=== PATIENT | male | born 1950 | race Hispanic/Latino ===

== ENCOUNTER 2022-04-22 00:07 | Inpatient (IN) | payer OTHER ==
[2022-04-22 02:09] LABS: Absolute Lymphocytes (CBC) 1.9 K/uL (0.7-4.9); Hematocrit 37.2 % (39.6-49.0); Lymphocytes % 20.5 % (15.3-44.8); MCV 80.6 fL (80-100); MPV 7.9 fL (7.6-11.3); RBC Red Blood Cell Count 4.61 M/uL (4.33-5.43)
[2022-04-22 02:21] LABS: BUN Blood Urea Nitrogen 26 mg/dL (7-18); Bicarbonate 27 mmol/L (21-32); Glomerular Filtration Rate 75 ml/min (=/>90); Glucose Level 101 mg/dL (74-106); Potassium 3.4 mmol/L (3.5-5.1); Sodium Level 138 mmol/L (136-145); Troponin High Sensitivity 3.7 pg/mL (<58.9)
[2022-04-22] MEDS ORDERED: NA CHLORIDE 0.9% 1,000 ML ONE ×2 (03:38→09:31)
--- NOTE | 2022-04-22 05:28 | ER ---
Nurse's Notes [facility] Name: Rohan Degroot Jr Age: 71 yrs Sex: Male : 1950 Arrival Date: 04/22/2022 Time: 00:12 Bed 24 Private MD: Diagnosis: Diabetic Foot Infection, Cellulitis Presentation: 04/22 00:37 Chief complaint: Patient states: Pain and swelling in toes on left foot x1 day. Pt is kb3 diabetic and had toes on right foot amputated in 08/2021 due to diabetic wounds. Coronavirus screen: Vaccine status: Patient reports receiving the 2nd dose of the covid vaccine. Client denies travel out of the [place] in the last 14 days. At this time, the client does not indicate any symptoms associated with coronavirus-19. Ebola Screen: Patient negative for fever greater than or equal to 101.5 degrees Fahrenheit, and additional compatible Ebola Virus Disease symptoms Patient denies exposure to infectious person. Patient denies travel to an Ebola-affected area in the 21 days before illness onset. No symptoms or risks identified at this time. Initial Sepsis Screen: Does the patient meet any 2 criteria? No. Patient's initial sepsis screen is negative. Does the patient have a suspected source of infection? Yes: Skin breakdown/wound. Risk Assessment: Do you want to hurt yourself or someone else? Patient reports no desire to harm self or others. Onset of symptoms was April 21, 2022. 00:37 Method Of Arrival: Ambulatory kb3 00:37 Acuity: NIKUNJ 3 kb3 Triage Assessment: 00:40 General: Appears in no apparent distress. comfortable, Behavior is calm, cooperative. kb3 Pain: Complains of pain in left foot Pain does not radiate. Pain currently is 8 out of 10 on a pain scale. Quality of pain is described as burning, Pain began 1 day ago. Is continuous. Musculoskeletal: Reports pain in left foot. Historical: - Allergies: 00:40 No Known Allergies; kb3 - PMHx: 00:40 Diabetes mellitus; Hypertensive disorder; Heart disease; Hypercholesterolemia; kb3 Depressive disorder; Congestive heart failure; - Immunization history:: Adult Immunizations up to date, Client reports receiving the 2nd dose of the Covid vaccine, Last tetanus immunization: up to date. - Social history:: Smoking status: Patient reports the use of cigarette tobacco products, smokes one-half pack cigarettes per day, Patient/guardian denies using alcohol, street drugs. Screenin:31 Abuse screen: Denies threats or abuse. Denies injuries from another. Nutritional kd3 screening: No deficits noted. Tuberculosis screening: No symptoms or risk factors identified. Fall Risk None identified. Assessment: 03:31 General: Appears in no apparent distress. Behavior is calm, cooperative. Neuro: Level kd3 of Consciousness is awake, alert, obeys commands, Oriented to person, place, time, situation. Respiratory: Airway is patent Trachea midline Respiratory effort is even, unlabored, Respiratory pattern is regular, symmetrical. 04:02 Reassessment: Patient is alert, oriented x 3, equal unlabored respirations, skin bb warm/dry/pink. pt awaiting diagnostic results, IV site intact, patent with fluids infusing family at bedside. Vital Signs: 00:37 Pulse 76; Resp 20; Temp 98.0; Pulse Ox 97% ; Weight 97.52 kg; Height 5 ft. 6 in. kb3 (167.64 cm); Pain 8/10; 03:31 BP 145 / 84; kd3 04:03 BP 140 / 76; Pulse 72; Resp 18 S; Pulse Ox 99% on R/A; bb 00:37 Body Mass Index 34.70 (97.52 kg, 167.64 cm) kb3 ED Course: 00:12 Patient arrived in ED. ja2 00:40 Triage completed. kb3 00:40 Arm band placed on Patient placed in an exam room. kb3 01:02 Desiree Serrano, RN is Primary Nurse. kd3 01:14 Ron Holliday MD is Attending Physician. mh7 01:25 Inserted saline lock: 20 gauge in right forearm, using aseptic technique. Blood kb3 collected. 01:48 Blood Culture Adult (2) Sent. kb3 01:48 Lactate Sent. kb3 01:48 Basic Metabolic Panel Sent. kb3 01:48 CBC with Diff Sent. kb3 01:48 Troponin HS Sent. kb3 01:57 Foot Left 3 View XRAY In Process Unspecified. EDMS 03:31 No provider procedures requiring assistance completed. kd3 05:27 Ruddy Santos MD is Hospitalizing Provider. mh7 05:37 COVID swab sent to lab. wm 17:40 Patient admitted, IV remains in place. ld1 Administered Medications: 03:34 Drug: NS 0.9% 1000 ml Route: IV; Rate: 1000 ml; Site: right forearm; as6 04:30 Follow up: IV Status: Completed infusion; IV Intake: 1000ml bb 06:04 Drug: Zosyn (piperacillin-tazobactam) 3.375 grams Route: IVPB; Infused Over: 60 mins; bb Site: right antecubital; 06:50 Drug: DiFLUcan (fluconazole) 150 mg Route: PO; as6 10:37 Drug: vancoMYCIN 1 grams Route: IVPB; Infused Over: 2 hrs; Site: right antecubital; kr3 Medication: 03:31 VIS not applicable for this client. kd3 Intake: 04:30 IV: 1000ml; Total: 1000ml. bb Outcome: 05:28 Decision to Hospitalize by Provider. [facility] 17:39 Admitted to Med/surg accompanied by tech, via wheelchair, room 215, with chart, Report ld1 called to URSULA Moon 17:39 Condition: stable 17:39 Instructed on the need for admit. 17:40 Patient left the ED. ld1 Signatures: Dispatcher [employer] EDMS Carol Birmingham RN RN bb Ron Holliday MD MD 7 Sobia Banks RN RN ld1 Mery Trinidad Giselle Cardona Ashby RN RN as6 Desiree Serrano RN RN kd3 Marina Wild RN RN [email or web address] Umu Askew, RN RN kb3
--- NOTE | 2022-04-22 05:29 | EDPHYS ---
Physician Documentation [facility] Name: Rohan Degroot Jr Age: 71 yrs Sex: Male : 1950 Arrival Date: 04/22/2022 Time: 00:12 Bed 24 Private MD: GAMALIEL Physician Ron Holliday HPI: 04/22 01:45 This 71 yrs old Male presents to ER via Ambulatory with complaints of Foot mh7 Pain. 01:45 The patient presents with pain, that is acute, tenderness. The complaints affect the mh7 left foot. The complaints affect the toes of left foot. Context: The problem was sustained at an unknown location, resulted from an unknown cause, Mechanism of Injury: Unknown the patient can fully bear weight, the patient is able to ambulate, without difficulty. Onset: The symptoms/episode began/occurred 2 day(s) ago. Modifying factors: The symptoms are alleviated by nothing, the symptoms are aggravated by nothing. Associated signs and symptoms: Pertinent negatives: calf tenderness, fever, nausea, numbness, rash, tingling, vomiting, warmth, weakness. Severity of symptoms: At their worst the symptoms were moderate, 2 day(s) ago, in the emergency department the symptoms are unchanged. Historical: - Allergies: 00:40 No Known Allergies; kb3 - PMHx: 00:40 Diabetes mellitus; Hypertensive disorder; Heart disease; Hypercholesterolemia; kb3 Depressive disorder; Congestive heart failure; - Immunization history:: Adult Immunizations up to date, Client reports receiving the 2nd dose of the Covid vaccine, Last tetanus immunization: up to date. - Social history:: Smoking status: Patient reports the use of cigarette tobacco products, smokes one-half pack cigarettes per day, Patient/guardian denies using alcohol, street drugs. ROS: 01:45 Constitutional: Negative for fever, chills, and weight loss, Eyes: Negative for injury, mh7 pain, redness, and discharge, ENT: Negative for injury, pain, and discharge, Neck: Negative for injury, pain, and swelling, Cardiovascular: Negative for chest pain, palpitations, and edema, Respiratory: Negative for shortness of breath, cough, wheezing, and pleuritic chest pain, Abdomen/GI: Negative for abdominal pain, nausea, vomiting, diarrhea, and constipation, Back: Negative for injury and pain, : Negative for injury, bleeding, discharge, and swelling, Neuro: Negative for headache, weakness, numbness, tingling, and seizure, Psych: Negative for depression, anxiety, suicide ideation, homicidal ideation, and hallucinations, Allergy/Immunology: Negative for hives, rash, and allergies, Endocrine: Negative for neck swelling, polydipsia, polyuria, polyphagia, and marked weight changes, Hematologic/Lymphatic: Negative for swollen nodes, abnormal bleeding, and unusual bruising. Exam: 01:45 Constitutional: This is a well developed, well nourished patient who is awake, alert, mh7 and in no acute distress. Head/Face: Normocephalic, atraumatic. Eyes: Pupils equal round and reactive to light, extra-ocular motions intact. Lids and lashes normal. Conjunctiva and sclera are non-icteric and not injected. Cornea within normal limits. Periorbital areas with no swelling, redness, or edema. Neck: Trachea midline, no thyromegaly or masses palpated, and no cervical lymphadenopathy. Supple, full range of motion without nuchal rigidity, or vertebral point tenderness. No Meningismus. Chest/axilla: Normal chest wall appearance and motion. Nontender with no deformity. No lesions are appreciated. Cardiovascular: Regular rate and rhythm with a normal S1 and S2. No gallops, murmurs, or rubs. Normal PMI, no JVD. No pulse deficits. Respiratory: Lungs have equal breath sounds bilaterally, clear to auscultation and percussion. No rales, rhonchi or wheezes noted. No increased work of breathing, no retractions or nasal flaring. Abdomen/GI: Soft, non-tender, with normal bowel sounds. No distension or tympany. No guarding or rebound. No evidence of tenderness throughout. Back: No spinal tenderness. No costovertebral tenderness. Full range of motion. Neuro: Awake and alert, GCS 15, oriented to person, place, time, and situation. Cranial nerves II-XII grossly intact. Motor strength 5/5 in all extremities. Sensory grossly intact. Cerebellar exam normal. Normal gait. Psych: Awake, alert, with orientation to person, place and time. Behavior, mood, and affect are within normal limits. 01:45 Skin: Warm, dry with normal turgor. Normal color with no rashes, no lesions, and no evidence of cellulitis. 01:45 Musculoskeletal/extremity: Extremities: noted in the distal dorsal left foot and toes: erythema, swelling, excoriation between digits, small ulcerations, ROM: intact in all extremities, Circulation is intact in all extremities. Sensation intact. Compartment Syndrome exam of affected extremity: is normal. no pain, no numbness, no tingling, no sensation deficit, no palor, no weak pulses, Joints: All joints appear normal with full range of motion. Weight bearing: able to fully bear weight, Tendon exam: specific tendon testing normal through active and passive range of motion DVT Exam: no pain, no swelling, no tenderness, negative Homans' sign noted on exam, no appreciated bluish discoloration, no erythema, no increased warmth, Calves: are non-tender, have equal circumference. Vital Signs: 00:37 Pulse 76; Resp 20; Temp 98.0; Pulse Ox 97% ; Weight 97.52 kg; Height 5 ft. 6 in. kb3 (167.64 cm); Pain 8/10; 03:31 BP 145 / 84; kd3 04:03 BP 140 / 76; Pulse 72; Resp 18 S; Pulse Ox 99% on R/A; bb 00:37 Body Mass Index 34.70 (97.52 kg, 167.64 cm) kb3 MDM: 05:26 Differential diagnosis: fracture, sprain, foreign body, arthritis, cellulitis. Data [facility] reviewed: vital signs, nurses notes, lab test result(s), CBC, electrolytes, urinalysis, radiologic studies, plain films. Data interpreted: Pulse oximetry: on room air is 99 %. Interpretation: normal. Counseling: I had a detailed discussion with the patient and/or guardian regarding: the historical points, exam findings, and any diagnostic results supporting the discharge/admit diagnosis, the presence of at least one elevated blood pressure reading (>120/80) during this emergency department visit, lab results, radiology results, the need for further work-up and treatment in the hospital. Response to treatment: the patient's symptoms have mildly improved after treatment. 05:28 Patient medically screened. [facility] 04/22 01:04 Order name: Basic Metabolic Panel; Complete Time: 06:42 kd3 04/22 01:04 Order name: CBC with Diff; Complete Time: 02:18 kd3 04/22 01:04 Order name: Troponin HS; Complete Time: 06:42 kd3 04/22 01:04 Order name: Lactate; Complete Time: 03:24 kd3 04/22 01:04 Order name: Blood Culture Adult (2) kd3 04/22 02:06 Order name: Glucose, Ancillary Testing; Complete Time: 02:18 EDMS 04/22 05:11 Order name: Lactate Sepsis 2 HR Follow-up; Complete Time: 05:17 EDMS 04/22 05:19 Order name: LFT's [facility] 04/22 05:36 Order name: SARS RAPID [facility] 04/22 05:37 Order name: CBC with Automated Diff EDMS 04/22 05:37 Order name: CBC with Automated Diff EDMS 04/22 05:37 Order name: Comprehensive Metabolic Panel EDND 04/22 05:37 Order name: Comprehensive Metabolic Panel [facility] [place] 04/22 06:08 Order name: SARS-COV-2 Antigen Rapid; Complete Time: 06:42 EDMS 04/22 01:04 Order name: EKG; Complete Time: 01:06 kd3 04/22 01:04 Order name: Cardiac monitoring; Complete Time: 01:40 kd3 04/22 01:04 Order name: EKG - Nurse/Tech; Complete Time: 02:04 kd3 04/22 01:04 Order name: IV Saline Lock; Complete Time: 01:25 kd3 04/22 01:04 Order name: Labs collected and sent; Complete Time: 01:25 kd3 04/22 01:12 Order name: Foot Left 3 View XRAY snw 04/22 05:37 Order name: 60g Consistent Carbohydrate (ADA 1800/2000) EDND 04/22 06:33 Order name: Liver (Hepatic) Function; Complete Time: 06:42 EDMS 04/22 09:18 Order name: Glucose, Ancillary Testing EDND 04/22 12:47 Order name: Glucose, Ancillary Testing EDND 04/22 14:48 Order name: US EDND 04/22 15:28 Order name: MRI EDND 04/22 01:04 Order name: O2 Per Protocol; Complete Time: 01:25 kd3 04/22 01:04 Order name: O2 Sat Monitoring; Complete Time: 01:25 kd3 Administered Medications: 03:34 Drug: NS 0.9% 1000 ml Route: IV; Rate: 1000 ml; Site: right forearm; as6 04:30 Follow up: IV Status: Completed infusion; IV Intake: 1000ml bb 06:04 Drug: Zosyn (piperacillin-tazobactam) 3.375 grams Route: IVPB; Infused Over: 60 mins; bb Site: right antecubital; 06:50 Drug: DiFLUcan (fluconazole) 150 mg Route: PO; as6 10:37 Drug: vancoMYCIN 1 grams Route: IVPB; Infused Over: 2 hrs; Site: right antecubital; kr3 Disposition Summary: 04/22/22 05:28 Hospitalization Ordered Hospitalization Status: Inpatient Admission [facility] Provider: Ruddy Santos [facility] Condition: Stable [facility] Problem: new [facility] Symptoms: have improved [facility] Bed/Room Type: Standard [facility] Location: Telemetry/MedSurg (Inpatient)(04/22/22 16:42) bd Room Assignment: [facility](04/22/22 16:42) bd Diagnosis - Diabetic Foot Infection, Cellulitis [facility] Forms: - Medication Reconciliation Form [facility] - SBAR form [facility] Signatures: Dispatcher [employer] EDMS Sahara Brandon Martha RN RN mw Carol Birmingham RN Ron Zapata MD MD 7 Evan Huston RN RN as6 Desiree Serrano RN RN kd3 Marina Wild RN RN kr3 Umu Askew, RN RN kb3 Corrections: (The following items were deleted from the chart) 05:31 05:28 Telemetry/MedSurg (Inpatient) [facility] 05:31 05:28 [facility] 05:39 01:45 Musculoskeletal/extremity: Extremities: noted in the toes of left foot: [facility] excoriation between digits, ROM: intact in all extremities, Circulation is intact in all extremities. Sensation intact. Compartment Syndrome exam of affected extremity: is normal. no pain, no numbness, no tingling, no sensation deficit, no palor, no weak pulses, Joints: All joints appear normal with full range of motion. Weight bearing: able to fully bear weight, Tendon exam: specific tendon testing normal through active and passive range of motion DVT Exam: no pain, no swelling, no tenderness, negative Homans' sign noted on exam, no appreciated bluish discoloration, no erythema, no increased warmth, Calves: are non-tender, have equal circumference, mh7 16:42 05:31 [facility] ER HOLD mw bd 16:42 05:31 ERHOLD- mw bd
[2022-04-22] MEDS ORDERED: ALBUTEROL 2.5 MG/3 ML NEB SOL NEB PRN (05:32)
[2022-04-22] MEDS ORDERED: ONDANSETRON 4 MG/2 ML VIAL IV PRN (05:32)
[2022-04-22] MEDS ORDERED: MORPHINE 2 MG/ML SYR IV PRN (05:32)
[2022-04-22] MEDS ORDERED: NA CHLORIDE 0.9% 100 ML ONE (05:55)
[2022-04-22] MEDS ORDERED: NA CHLORIDE 0.9% 250 ML ONE (05:55)
[2022-04-22] MEDS ORDERED: VANCOMYCIN 1 GM/VIAL ONE (05:55)
[2022-04-22] MEDS ORDERED: PIPERACIL/TAZO 3.375 GM VIAL IV ONE (05:56)
[2022-04-22] MEDS ORDERED: NA CHLORIDE 0.9% 1,000 ML IV SCH (06:00)
[2022-04-22 06:07] LABS: SARS-CoV-2 Antigen Rapid Res Negative (Negative)
[2022-04-22 06:23] LABS: ALT/SGPT 53 U/L (12-78); AST/SGOT 27 U/L (15-37); Albumin 3.5 g/dL (3.4-5.0); Alkaline Phosphatase 111 U/L (45-117); Bilirubin Total 0.2 mg/dL (0.2-1.0); Protein, Total 7.2 g/dL (6.4-8.2)
[2022-04-22 06:32] LABS: Bilirubin Direct < 0.1 mg/dL (0-0.2)
[2022-04-22] MEDS ORDERED: FLUCONAZOLE 100 MG TAB ONE (06:56)
[2022-04-22] MEDS: INSULIN -REGULAR HUMAN 50 UNIT/0.5 ML ML SQ SCH ×4 (07:30→21:00)
[2022-04-22] MEDS ORDERED: IPRATROPIUM BROM 0.5MG/2.5ML NEB SCH (08:00)
[2022-04-22] MEDS ORDERED: IPRATROPIUM BROM 0.5MG/2.5ML ONE (09:17)
[2022-04-22] MEDS: NA CHLORIDE 0.9% 1,000 ML IV SCH (13:03)
--- NOTE | 2022-04-22 13:10 | P.HP ---
Certification for Inpatient Patient admitted to: Inpatient With expected LOS: >2 Midnights Practitioner: I am a practitioner with admitting privileges, knowledge of patient current condition, hospital course, and medical plan of care. Services: Services provided to patient in accordance with Admission requirements found in Title 42 Section 412.3 of the Code of Federal Regulations Patient History Date of Service: 04/22/22 Reason for admission: FOOT INFECTION History of Present Illness: NICOLE IS A DIABETIC WITH CAD, PAD AND R FOREFOOT AMPUTATION COMES WITH L SIDE FOOT INFECTION OVERNIGHT. IT HAS TURNED RED AND HAS PAIN. NO FEVER. Allergies No Known Allergies Allergy (Unverified 04/22/22 05:56) Home medications list reviewed: Yes - Past Medical/Surgical History -: DM -: PAD WITH DM R FOREFOOT AMPUTATION. -: CAD WITH DM STENTS. Review of Systems 10-point ROS is otherwise unremarkable Physical Examination - Vital Signs Blood Pressure: 120/68 Pulse: 81 Respirations: 16 Pulse Ox (%): 94 - Physical Exam General: Mild distress HEENT: Atraumatic, PERRLA, Mucous membr. moist/pink, EOMI, Sclerae nonicteric Neck: Supple, 2+ carotid pulse no bruit, No LAD, Without JVD or thyroid abnormality Respiratory: Clear to auscultation bilaterally, Normal air movement Cardiovascular: Regular rate/rhythm, Normal S1 S2 Gastrointestinal: Normal bowel sounds, No tenderness Musculoskeletal: No tenderness Integumentary: Other (DIABETIC FOOT INFECTION. CELLULITIS. PAD LSIDE NO DP PULSE. ) Neurological: Normal gait, Normal speech, Normal strength at 5/5 x4 extr, Normal tone, Normal affect Lymphatics: No axilla or inguinal lymphadenopathy - Studies Laboratory Data (last 24 hrs) 04/22/22 05:19: Total Bilirubin Cancelled, AST Cancelled, ALT Cancelled, Alkaline Phosphatase Cancelled 04/22/22 01:14: WBC 9.0, Hgb 12.5 L, Hct 37.2 L, Plt Count 199 04/22/22 01:14: Sodium 138, Potassium 3.4 L, BUN 26 H, Creatinine 1.05, Glucose 101, Total Bilirubin 0.2, AST 27, ALT 53, Alkaline Phosphatase 111 Assessment and Plan - Problems (Diagnosis) (1) Cellulitis of left foot Current Visit: Yes Status: Acute Plan: ZOSYN IV MAY NOT NEED VANCOMYCIN. MRI FOOT. (2) Diabetic peripheral angiopathy Current Visit: Yes Status: Chronic Plan: HISTORY OF PAD. CHECK L SIDE. WILL GET VASCUALR SURGEON IF NEED. (3) Coronary artery disease due to type 2 diabetes mellitus Current Visit: Yes Status: Acute - Advance Directives Does patient have a Living Will: No Does patient have a Durable POA for Healthcare: No
--- NOTE | 2022-04-22 14:24 | RAD REPORT ---
EXAM DESCRIPTION: XR Left Foot Complete, 3 Views CLINICAL HISTORY: PAIN TECHNIQUE: Frontal, lateral and oblique views of the left foot. COMPARISON: No relevant prior studies available. FINDINGS: Bones/joints: No acute or remote fracture deformity. No osseous destruction or erosion. Multilevel degenerative changes most pronounced at the mid foot articulations. No dislocation. Soft tissues: Unremarkable. No radiopaque foreign body. Vasculature: Atherosclerotic disease. IMPRESSION: No acute abnormality. Electronically signed by: Odalys Gaitan MD 04/22/2022 2:20 AM CDT Due to temporary technical issues with the PACS/Fluency reporting system, reports are being signed by the in house radiologists without review as a courtesy to insure prompt reporting. The interpreting radiologist is fully responsible for the content of the report.
--- NOTE | 2022-04-22 14:47 | RAD REPORT ---
EXAM DESCRIPTION: US - Lower Extremity Arterial Bilat - 04/22/2022 2:35 pm CLINICAL HISTORY: Leg pain/peripheral vascular disease/ COMPARISON: None FINDINGS: The right common femoral, superficial femoral and right popliteal arteries demonstrate biphasic wave forms Left common femoral and left superficial femoral arterial waveform is biphasic. Left popliteal arteri al waveform biphasic The posterior tibial and dorsalis pedis arteries demonstrate monophasic waveforms bilaterally. Grayscale, color and spectral analysis performed on all vessels IMPRESSION: Mild disease involving proximal and mid arteries lower extremity bilaterally Moderate disease involving distal lower extremity arteries bilaterally
--- NOTE | 2022-04-22 15:28 | RAD REPORT ---
EXAM DESCRIPTION: MRI - Foot Left Wo Cont - 04/22/2022 3:13 pm CLINICAL HISTORY: M79.672, M72.2 COMPARISON: April 22, 2022 x-ray TECHNIQUE: Axial, sagittal and coronal magnetic resonance imaging left foot FINDINGS: Images are somewhat suboptimal Edema is present within dorsal subcutaneous tissues. No fracture or dislocation is seen. No significant abnormal signal within the bones to suggest osteomyelitis. IMPRESSION: No evidence of osteomyelitis
[2022-04-22] MEDS: PIPER TAZO 3.375 GM in NA CHLORIDE 0.9% 100 ML IV SCH (18:18)
[2022-04-22] MEDS: ENOXAPARIN 30 MG/0.3 ML SQ SCH (18:18)
[2022-04-23] MEDS: PIPER TAZO 3.375 GM in NA CHLORIDE 0.9% 100 ML IV SCH ×3 (00:07→16:39)
[2022-04-23 03:46] LABS: Absolute Lymphocytes (CBC) 1.3 K/uL (0.7-4.9); Hematocrit 35.9 % (39.6-49.0); Lymphocytes % 15.5 % (15.3-44.8); MCV 79.2 fL (80-100); MPV 7.5 fL (7.6-11.3); RBC Red Blood Cell Count 4.54 M/uL (4.33-5.43)
[2022-04-23 04:14] LABS: Albumin 3.3 g/dL (3.4-5.0); Bilirubin Total 0.5 mg/dL (0.2-1.0); Potassium 3.7 mmol/L (3.5-5.1); Protein, Total 6.9 g/dL (6.4-8.2)
[2022-04-23] MEDS: INSULIN -REGULAR HUMAN 50 UNIT/0.5 ML ML SQ SCH ×4 (07:30→21:27)
--- NOTE | 2022-04-23 08:17 | EKG ---
Test Date: 2022-04-22 Test Time: 01:54:50 Side [place]: EZIO MEASUREMENT RESULTS: Intervals: Rate: 69 IA: 232 QRSD: 94 QT: 420 QTc: 450 [place]: P: 34 IA: 232 QRS: -28 T: 39 INTERPRETIVE STATEMENTS: Sinus rhythm with 1st degree AV block Otherwise normal ECG No previous ECG available for comparison Electronically Signed On 04-23-22 08:11:33 CDT by Joey Calderón
[2022-04-23] MEDS ORDERED: PIPERACIL/TAZO 3.375 GM VIAL IV ONE (08:30)
[2022-04-23] MEDS: TRAMADOL HCL 50 MG TAB PO PRN ×2 (14:19→19:43)
[2022-04-23] MEDS: ENOXAPARIN 30 MG/0.3 ML SQ SCH (16:51)
--- NOTE | 2022-04-23 21:20 | P.PN ---
Subjective Date of Service: 04/23/22 Chief Complaint: FOOT INFECTION Subjective: Improving FOOT IS DRYING UP. INFECTION SHOWS IMPROVEMENT. HE HAS SHOOTING PAIN FROM FOOT TO THIGH. TRAMADOL IS NOT WORKING Physical Examination - Vital Signs Temperature: 98.1 F Blood Pressure: 142/70 Pulse: 74 Respirations: 16 Pulse Ox (%): 95 - Physical Exam General: Oriented x3, Mild distress HEENT: Atraumatic, PERRLA, EOMI Neck: Supple, JVD not distended Respiratory: Clear to auscultation bilaterally, Normal air movement Cardiovascular: Regular rate/rhythm, Normal S1 S2 Gastrointestinal: Normal bowel sounds, No tenderness Musculoskeletal: No tenderness Integumentary: No rashes, Erythema (FOREFOOT, NAIL GOOD BLOOD RETURN. MILD DP AND PT PULSE. ) Neurological: Normal speech, Normal tone, Normal affect Lymphatics: No axilla or inguinal lymphadenopathy - Studies Medications List Reviewed: Yes Assessment And Plan - Current Problems (Diagnosis) (1) Cellulitis of left foot Current Visit: Yes Status: Acute Plan: ZOSYN IV MAY NOT NEED VANCOMYCIN. MRI FOOT. CONT ANBX. (2) Diabetic peripheral angiopathy Current Visit: Yes Status: Chronic Plan: HISTORY OF PAD. CHECK L SIDE. WILL GET VASCUALR SURGEON IF NEED. (3) Coronary artery disease due to type 2 diabetes mellitus Current Visit: Yes Status: Acute (4) Diabetic peripheral neuropathy Current Visit: Yes Status: Chronic Plan: GABAPENTIN TRIAL MAY NEED TO RAISE DOSE. SMALL DOSE TO START WITH.
[2022-04-23] MEDS: GABAPENTIN 100 MG CAP PO SCH (21:26)
[2022-04-24] MEDS: PIPER TAZO 3.375 GM in NA CHLORIDE 0.9% 100 ML IV SCH ×3 (00:53→18:04)
[2022-04-24] MEDS: NA CHLORIDE 0.9% 1,000 ML IV SCH (00:54)
[2022-04-24] MEDS: INSULIN -REGULAR HUMAN 50 UNIT/0.5 ML ML SQ SCH ×4 (07:30→21:00)
[2022-04-24] MEDS: HOME MED 1 EA UNK (Semaglutide [Ozempic] 1 MG/0.75 ML Pen.Injctr) SQ SCH (07:45)
[2022-04-24] MEDS ORDERED: VANCOMYCIN 1 GM in NA CHLORIDE 0.9% 250 ML IVPB SCH (09:00)
[2022-04-24] MEDS ORDERED: HUMALOG MIX 75/25 100 UNITS/ML SQ SCH ×2 (09:00→18:00)
[2022-04-24] MEDS: GABAPENTIN 100 MG CAP PO SCH ×3 (10:02→21:40)
[2022-04-24] MEDS: VANCOMYCIN 1.75 GM in NA CHLORIDE 0.9% 500 ML IVPB SCH (10:02)
[2022-04-24] MEDS: ASPIRIN 81 MG CHEWABLE TABLET PO SCH (10:03)
[2022-04-24] MEDS: LOSARTAN POTASSIUM 50 MG TABLET PO SCH (10:03)
[2022-04-24] MEDS: BUPROPION HCL XL 150 MG TAB PO SCH (10:03)
[2022-04-24] MEDS: SERTRALINE HCL 100 MG TAB PO SCH (10:03)
[2022-04-24] MEDS: ACETIC ACID 0.25% IRRIG IRR SCH (10:13)
[2022-04-24] MEDS: DUTASTERIDE 0.5 MG GEL CAP PO SCH (10:13)
[2022-04-24] MEDS: CLOPIDOGREL 75 MG TABLET PO SCH (10:14)
[2022-04-24] MEDS: ENOXAPARIN 40 MG/0.4 ML SQ SCH (17:00)
[2022-04-24] MEDS ORDERED: ENOXAPARIN 30 MG/0.3 ML SQ SCH (17:00)
--- NOTE | 2022-04-24 21:02 | P.PN ---
Subjective Date of Service: 04/24/22 Chief Complaint: FOOT INFECTION Subjective: Improving FOOT IS DRYING UP. INFECTION SHOWS IMPROVEMENT. HE HAS SHOOTING PAIN FROM FOOT TO THIGH. TRAMADOL IS NOT WORKING HE HAD NEUROPATHIC PAIN LASTNIGHT AND I GAVE HIM GABAPENTIN THAT WORKED WELL. Physical Examination - Vital Signs Temperature: 97.8 F Blood Pressure: 134/64 Pulse: 70 Respirations: 16 Pulse Ox (%): 95 - Physical Exam General: Mild distress, Obese HEENT: Atraumatic, PERRLA, EOMI Neck: Supple, JVD not distended Respiratory: Clear to auscultation bilaterally, Normal air movement Cardiovascular: Regular rate/rhythm, Normal S1 S2 Gastrointestinal: Normal bowel sounds, No tenderness Musculoskeletal: No tenderness Integumentary: No rashes, Erythema (THE PLANTER SURFACE OF FOREFOOT IS IMPROVING BUT THE PUS EXISTS BETWEEN TOES.) Neurological: Normal speech, Normal tone, Normal affect Lymphatics: No axilla or inguinal lymphadenopathy - Studies Medications List Reviewed: Yes Assessment And Plan - Current Problems (Diagnosis) (1) Cellulitis of left foot Current Visit: Yes Status: Acute Plan: ZOSYN IV MAY NOT NEED VANCOMYCIN. MRI FOOT. CONT ANBX. I ADEED VANCOMYCIN AND ALSO ASKED NURSE TO DO AEROBIC, ANEROBIC AND FUNGAL CULTURE OF THE PUS. STABLE FO FLAVIO. (2) Diabetic peripheral angiopathy Current Visit: Yes Status: Chronic Plan: HISTORY OF PAD. CHECK L SIDE. WILL GET VASCUALR SURGEON IF NEED. (3) Coronary artery disease due to type 2 diabetes mellitus Current Visit: Yes Status: Acute (4) Diabetic peripheral neuropathy Current Visit: Yes Status: Chronic Plan: GABAPENTIN TRIAL MAY NEED TO RAISE DOSE. SMALL DOSE TO START WITH.
[2022-04-24] MEDS: ATORVASTATIN 40 MG TAB PO SCH (21:40)
[2022-04-24] MEDS: TAMSULOSIN 0.4 MG SR CAP PO SCH (21:40)
[2022-04-25] MEDS: PIPER TAZO 3.375 GM in NA CHLORIDE 0.9% 100 ML IV SCH ×3 (00:39→17:56)
[2022-04-25] MEDS: VANCOMYCIN 1.75 GM in NA CHLORIDE 0.9% 500 ML IVPB SCH ×2 (03:43→21:21)
[2022-04-25] MEDS: INSULIN -REGULAR HUMAN 50 UNIT/0.5 ML ML SQ SCH ×4 (07:30→21:00)
[2022-04-25] MEDS: DUTASTERIDE 0.5 MG GEL CAP PO SCH (08:59)
[2022-04-25] MEDS: ASPIRIN 81 MG CHEWABLE TABLET PO SCH (09:00)
[2022-04-25] MEDS: HUMALOG MIX 75/25 100 UNITS/ML SQ SCH ×2 (09:00→17:57)
[2022-04-25] MEDS: BUPROPION HCL XL 150 MG TAB PO SCH (09:00)
[2022-04-25] MEDS: GABAPENTIN 100 MG CAP PO SCH ×3 (09:00→21:21)
[2022-04-25] MEDS: LOSARTAN POTASSIUM 50 MG TABLET PO SCH (09:00)
[2022-04-25] MEDS: NA CHLORIDE 0.9% 1,000 ML IV SCH (09:01)
[2022-04-25] MEDS: CLOPIDOGREL 75 MG TABLET PO SCH (09:01)
[2022-04-25] MEDS: SERTRALINE HCL 100 MG TAB PO SCH (09:01)
[2022-04-25] MEDS: ACETIC ACID 0.25% IRRIG IRR SCH (09:02)
--- NOTE | 2022-04-25 12:54 | P.PN ---
Subjective Date of Service: 04/25/22 Chief Complaint: FOOT INFECTION Subjective: Improving FOOT IS DRYING UP. INFECTION SHOWS IMPROVEMENT. HE HAS SHOOTING PAIN FROM FOOT TO THIGH. TRAMADOL IS NOT WORKING HE HAD NEUROPATHIC PAIN LASTNIGHT AND I GAVE HIM GABAPENTIN THAT WORKED WELL. HE IS FEELING A LOT BETTER TODAY. CULTURES DONE AND PENDING. Physical Examination - Vital Signs Temperature: 97.5 F Blood Pressure: 129/69 Pulse: 73 Respirations: 16 Pulse Ox (%): 94 - Physical Exam General: Oriented x3, Acute distress, Obese HEENT: Atraumatic, PERRLA, EOMI Neck: Supple, JVD not distended Respiratory: Clear to auscultation bilaterally, Normal air movement Cardiovascular: Regular rate/rhythm, Normal S1 S2 Gastrointestinal: Normal bowel sounds, No tenderness Musculoskeletal: No tenderness Integumentary: Skin breakdown (FOOT ULCER DISTAL. FOREFOOT. PUS BETWEEN TOES. ), Tenderness/swelling, Other Neurological: Normal speech, Normal tone, Normal affect Lymphatics: No axilla or inguinal lymphadenopathy - Studies Medications List Reviewed: Yes Assessment And Plan - Current Problems (Diagnosis) (1) Cellulitis of left foot Current Visit: Yes Status: Acute Plan: ZOSYN IV MAY NOT NEED VANCOMYCIN. MRI FOOT. CONT ANBX. I ADEED VANCOMYCIN AND ALSO ASKED NURSE TO DO AEROBIC, ANEROBIC AND FUNGAL CULTURE OF THE PUS. STABLE FO FLAVIO. VANCOMYCIN CONTINUE ZOSYN IV. MAY NOT NEED IV MD. (2) Diabetic peripheral angiopathy Current Visit: Yes Status: Chronic Plan: HISTORY OF PAD. CHECK L SIDE. WILL GET VASCUALR SURGEON IF NEED. (3) Coronary artery disease due to type 2 diabetes mellitus Current Visit: Yes Status: Acute (4) Diabetic peripheral neuropathy Current Visit: Yes Status: Chronic Plan: GABAPENTIN TRIAL MAY NEED TO RAISE DOSE. SMALL DOSE TO START WITH.
[2022-04-25] MEDS: ENOXAPARIN 40 MG/0.4 ML SQ SCH (17:57)
[2022-04-25] MEDS: TAMSULOSIN 0.4 MG SR CAP PO SCH (21:21)
[2022-04-25] MEDS: ATORVASTATIN 40 MG TAB PO SCH (21:21)
[2022-04-25] MEDS: TRAMADOL HCL 50 MG TAB PO PRN (23:14)
[2022-04-26] MEDS: PIPER TAZO 3.375 GM in NA CHLORIDE 0.9% 100 ML IV SCH ×3 (01:36→17:51)
[2022-04-26] MEDS: INSULIN -REGULAR HUMAN 50 UNIT/0.5 ML ML SQ SCH ×4 (07:30→20:51)
[2022-04-26] MEDS: HUMALOG MIX 75/25 100 UNITS/ML SQ SCH ×2 (09:06→16:58)
[2022-04-26] MEDS: DUTASTERIDE 0.5 MG GEL CAP PO SCH (09:07)
[2022-04-26] MEDS: SERTRALINE HCL 100 MG TAB PO SCH (09:08)
[2022-04-26] MEDS: BUPROPION HCL XL 150 MG TAB PO SCH (09:08)
[2022-04-26] MEDS: GABAPENTIN 100 MG CAP PO SCH ×3 (09:08→20:48)
[2022-04-26] MEDS: LOSARTAN POTASSIUM 50 MG TABLET PO SCH (09:08)
[2022-04-26] MEDS: CLOPIDOGREL 75 MG TABLET PO SCH (09:08)
[2022-04-26] MEDS: ASPIRIN 81 MG CHEWABLE TABLET PO SCH (09:08)
[2022-04-26] MEDS: ACETIC ACID 0.25% IRRIG IRR SCH (10:34)
[2022-04-26] MEDS: VANCOMYCIN 1.75 GM in NA CHLORIDE 0.9% 500 ML IVPB SCH (15:41)
[2022-04-26] MEDS: ENOXAPARIN 40 MG/0.4 ML SQ SCH (16:58)
[2022-04-26] MEDS: NA CHLORIDE 0.9% 1,000 ML IV SCH (17:03)
[2022-04-26] MEDS: TAMSULOSIN 0.4 MG SR CAP PO SCH (20:47)
[2022-04-26] MEDS: ATORVASTATIN 40 MG TAB PO SCH (20:47)
[2022-04-27] MEDS: PIPER TAZO 3.375 GM in NA CHLORIDE 0.9% 100 ML IV SCH ×3 (01:54→16:55)
[2022-04-27] MEDS: INSULIN -REGULAR HUMAN 50 UNIT/0.5 ML ML SQ SCH ×4 (07:30→21:00)
[2022-04-27] MEDS: BUPROPION HCL XL 150 MG TAB PO SCH (08:29)
[2022-04-27] MEDS: HUMALOG MIX 75/25 100 UNITS/ML SQ SCH ×2 (08:30→16:55)
[2022-04-27] MEDS: CLOPIDOGREL 75 MG TABLET PO SCH (08:30)
[2022-04-27] MEDS: LOSARTAN POTASSIUM 50 MG TABLET PO SCH (08:30)
[2022-04-27] MEDS: SERTRALINE HCL 100 MG TAB PO SCH (08:30)
[2022-04-27] MEDS: ASPIRIN 81 MG CHEWABLE TABLET PO SCH (08:30)
[2022-04-27] MEDS: DUTASTERIDE 0.5 MG GEL CAP PO SCH (08:31)
[2022-04-27] MEDS: ACETIC ACID 0.25% IRRIG IRR SCH (08:31)
[2022-04-27] MEDS: GABAPENTIN 100 MG CAP PO SCH ×3 (08:31→22:09)
--- NOTE | 2022-04-27 11:12 | P.PN ---
Subjective Date of Service: 04/27/22 Chief Complaint: FOOT INFECTION Subjective: Improving FOOT IS DRYING UP. INFECTION SHOWS IMPROVEMENT. HE HAS SHOOTING PAIN FROM FOOT TO THIGH. TRAMADOL IS NOT WORKING HE HAD NEUROPATHIC PAIN LASTNIGHT AND I GAVE HIM GABAPENTIN THAT WORKED WELL. HE IS FEELING A LOT BETTER TODAY. CULTURES DONE AND PENDING. HE IS NOT IN MUCH PAIN ANY LONGER NO FEVER. Review of Systems 10-point ROS is otherwise unremarkable General: Weakness Physical Examination - Vital Signs Temperature: 97.2 F Blood Pressure: 143/74 Pulse: 68 Respirations: 18 Pulse Ox (%): 97 - Physical Exam General: Oriented x3, Mild distress, Obese HEENT: Atraumatic, PERRLA, EOMI Neck: Supple, JVD not distended Respiratory: Clear to auscultation bilaterally, Normal air movement Cardiovascular: Regular rate/rhythm, Normal S1 S2 Gastrointestinal: Normal bowel sounds, No tenderness Musculoskeletal: No tenderness Integumentary: Erythema (FOREFOOT PLANTER ERYTHEMA IS LOT BETTER. STILL HAS PUS IN BETWEEN TOES.) Neurological: Normal speech, Normal tone, Normal affect Lymphatics: No axilla or inguinal lymphadenopathy - Studies Microbiology Data (last 24 hrs): 04/22/22 01:45 Blood - Blood Aerobic Blood Culture - Final No growth in 5 days. 04/22/22 01:45 Blood - Blood Anaerobic Blood Culture - Final No growth in 5 days. 04/22/22 01:25 Blood - Blood Aerobic Blood Culture - Final No growth in 5 days. 04/22/22 01:25 Blood - Blood Anaerobic Blood Culture - Final No growth in 5 days. Medications List Reviewed: Yes Assessment And Plan - Current Problems (Diagnosis) (1) Cellulitis of left foot Current Visit: Yes Status: Acute Plan: CULTURES ARE PENDING I SUSPECT THEY MAY COME NEGATIVE THEY WERE DONE AFTER ABX STARTED BY ER. CLINICALLY I SUSPECT MRSA IS LIKELY. VANCOMYCIN HAS MADE A BIG DIFFERENCE SO I WILL CONTINUE FOR TOTAL ABOUT 14 DAYS. MRI SHOWS NO OSTEOMYELITIS. (2) Diabetic peripheral angiopathy Current Visit: Yes Status: Chronic Plan: HISTORY OF PAD. CHECK L SIDE. WILL GET VASCUALR SURGEON IF NEED. (3) Coronary artery disease due to type 2 diabetes mellitus Current Visit: Yes Status: Acute (4) Diabetic peripheral neuropathy Current Visit: Yes Status: Chronic Plan: GABAPENTIN TRIAL MAY NEED TO RAISE DOSE. SMALL DOSE TO START WITH.
--- NOTE | 2022-04-27 11:15 | P.PN ---
Subjective Date of Service: 04/26/22 Chief Complaint: FOOT INFECTION Subjective: Improving FOOT IS DRYING UP. INFECTION SHOWS IMPROVEMENT. HE HAS SHOOTING PAIN FROM FOOT TO THIGH. TRAMADOL IS NOT WORKING HE HAD NEUROPATHIC PAIN LASTNIGHT AND I GAVE HIM GABAPENTIN THAT WORKED WELL. HE IS FEELING A LOT BETTER TODAY. CULTURES DONE AND PENDING. HE IS NOT IN MUCH PAIN ANY LONGER NO FEVER. TALKED TO . PUS STILL THERE BETWEEN TOES. Physical Examination - Vital Signs Temperature: 97.2 F Blood Pressure: 143/74 Pulse: 68 Respirations: 18 Pulse Ox (%): 97 - Physical Exam General: Oriented x3, Mild distress, Moderate distress HEENT: Atraumatic, PERRLA, EOMI Neck: Supple, JVD not distended Respiratory: Clear to auscultation bilaterally, Normal air movement Cardiovascular: Regular rate/rhythm, Normal S1 S2 Gastrointestinal: Normal bowel sounds, No tenderness Musculoskeletal: No tenderness Integumentary: No rashes Neurological: Normal speech, Normal tone, Normal affect Lymphatics: No axilla or inguinal lymphadenopathy - Studies Microbiology Data (last 24 hrs): 04/22/22 01:45 Blood - Blood Aerobic Blood Culture - Final No growth in 5 days. 04/22/22 01:45 Blood - Blood Anaerobic Blood Culture - Final No growth in 5 days. 04/22/22 01:25 Blood - Blood Aerobic Blood Culture - Final No growth in 5 days. 04/22/22 01:25 Blood - Blood Anaerobic Blood Culture - Final No growth in 5 days. Medications List Reviewed: Yes Assessment And Plan - Current Problems (Diagnosis) (1) Cellulitis of left foot Current Visit: Yes Status: Acute Plan: CULTURES ARE PENDING CONTINUE VANCO AND ZOSYN PICC LINE. VANCO FOR HOME. ZOSYN WILL STOP AT DC. STABLE FOR NOW. (2) Diabetic peripheral angiopathy Current Visit: Yes Status: Chronic Plan: HISTORY OF PAD. CHECK L SIDE. WILL GET VASCUALR SURGEON IF NEED. DR. MOURA ON OUTPATIENT BASIS. (3) Coronary artery disease due to type 2 diabetes mellitus Current Visit: Yes Status: Acute (4) Diabetic peripheral neuropathy Current Visit: Yes Status: Chronic Plan: GABAPENTIN TRIAL MAY NEED TO RAISE DOSE. SMALL DOSE TO START WITH.
[2022-04-27] MEDS: VANCOMYCIN 1.75 GM in NA CHLORIDE 0.9% 500 ML IVPB SCH (11:20)
[2022-04-27] MEDS: ENOXAPARIN 40 MG/0.4 ML SQ SCH (16:55)
--- NOTE | 2022-04-27 17:12 | RAD REPORT ---
EXAM DESCRIPTION: RAD - Chest Single View - 04/27/2022 1:55 am CLINICAL HISTORY: 71 years Male, S/P PICC insertion COMPARISON: 03/28/2020 TECHNIQUE: Single portable x-ray view of the chest performed on 04/27/2022 at 1:49 AM FINDINGS: Lungs are well-expanded and are grossly clear. There is no evidence of a pneumothorax. The cardiac silhouette is normal in size and configuration. The mediastinal contours are normal. No acute osseous abnormality is identified. There are degenerative changes of the shoulders bilateral ly, right greater than left and mild degenerative changes of the thoracic spine. No acute soft tissue abnormalities are seen. Lines and tubes: The right upper extremity PICC line catheter tip terminates in the region of the s uperior vena cava. Free air: None IMPRESSION: No evidence of acute intrathoracic disease. The tip of the right upper extremity PICC li ne catheter terminates in the region of the superior vena cava. Electronically signed by: Anastasiia Sanchez DO 04/27/2022 3:15 AM CDT Due to temporary technical issues with the PACS/Fluency reporting system, reports are being signed by the in house radiologists without review as a courtesy to insure prompt reporting. The interpreting radiologist is fully responsible for the content of the report.
[2022-04-27] MEDS: ATORVASTATIN 40 MG TAB PO SCH (22:07)
[2022-04-27] MEDS: TAMSULOSIN 0.4 MG SR CAP PO SCH (22:08)
[2022-04-28] MEDS: PIPER TAZO 3.375 GM in NA CHLORIDE 0.9% 100 ML IV SCH ×3 (01:02→17:30)
[2022-04-28] MEDS: NA CHLORIDE 0.9% 1,000 ML IV SCH (02:23)
[2022-04-28] MEDS: VANCOMYCIN 1.75 GM in NA CHLORIDE 0.9% 500 ML IVPB SCH ×2 (03:17→21:28)
[2022-04-28] MEDS: INSULIN -REGULAR HUMAN 50 UNIT/0.5 ML ML SQ SCH ×4 (07:30→21:00)
[2022-04-28] MEDS: SERTRALINE HCL 100 MG TAB PO SCH (08:54)
[2022-04-28] MEDS: ASPIRIN 81 MG CHEWABLE TABLET PO SCH (08:54)
[2022-04-28] MEDS: CLOPIDOGREL 75 MG TABLET PO SCH (08:54)
[2022-04-28] MEDS: LOSARTAN POTASSIUM 50 MG TABLET PO SCH (08:54)
[2022-04-28] MEDS: BUPROPION HCL XL 150 MG TAB PO SCH (08:54)
[2022-04-28] MEDS: GABAPENTIN 100 MG CAP PO SCH ×3 (08:54→21:33)
[2022-04-28] MEDS: DUTASTERIDE 0.5 MG GEL CAP PO SCH (08:55)
[2022-04-28] MEDS ORDERED: HUMALOG MIX 75/25 100 UNITS/ML SQ SCH (09:00)
--- NOTE | 2022-04-28 12:11 | P.PN ---
Subjective Date of Service: 04/28/22 Chief Complaint: FOOT INFECTION Subjective: Improving HE FEELS LOT BETTER. NO PAIN Physical Examination - Vital Signs Temperature: 97.5 F Blood Pressure: 138/69 Pulse: 69 Respirations: 18 Pulse Ox (%): 97 - Physical Exam General: Oriented x3, Obese HEENT: Atraumatic, PERRLA, EOMI Neck: Supple, JVD not distended Respiratory: Clear to auscultation bilaterally, Normal air movement Cardiovascular: Regular rate/rhythm, Normal S1 S2 Gastrointestinal: Normal bowel sounds, No tenderness Musculoskeletal: No tenderness Integumentary: No rashes, Other (BETWEEN TOES PUS HAS IMPROVED SIGNIFICANTLY. DOWN TO SOME WET PUS BETWEEN LAT TWO TOES. ) Neurological: Normal speech, Normal tone, Normal affect Lymphatics: No axilla or inguinal lymphadenopathy - Studies Medications List Reviewed: Yes Assessment And Plan - Current Problems (Diagnosis) (1) Cellulitis of left foot Current Visit: Yes Status: Acute Plan: CULTURES ARE PENDING CONTINUE VANCO AND ZOSYN PICC LINE. VANCO FOR HOME. ZOSYN WILL STOP AT DC. STABLE FOR NOW. CONT VANCOMYCIN TOTAL FO R 14 DAYS. (2) Diabetic peripheral angiopathy Current Visit: Yes Status: Chronic Plan: HISTORY OF PAD. CHECK L SIDE. WILL GET VASCUALR SURGEON IF NEED. DR. MOURA ON OUTPATIENT BASIS. (3) Coronary artery disease due to type 2 diabetes mellitus Current Visit: Yes Status: Acute (4) Diabetic peripheral neuropathy Current Visit: Yes Status: Chronic Plan: GABAPENTIN TRIAL MAY NEED TO RAISE DOSE. SMALL DOSE TO START WITH.
[2022-04-28] MEDS: ACETIC ACID 0.25% IRRIG IRR SCH (14:35)
[2022-04-28] MEDS: HUMALOG MIX 75/25 100 UNITS/ML SQ SCH (17:33)
[2022-04-28] MEDS: ENOXAPARIN 40 MG/0.4 ML SQ SCH (17:34)
[2022-04-28] MEDS: TAMSULOSIN 0.4 MG SR CAP PO SCH (21:33)
[2022-04-28] MEDS: ATORVASTATIN 40 MG TAB PO SCH (21:33)
[2022-04-29] MEDS: PIPER TAZO 3.375 GM in NA CHLORIDE 0.9% 100 ML IV SCH ×3 (01:27→17:19)
[2022-04-29] MEDS: NA CHLORIDE 0.9% 1,000 ML IV SCH (05:53)
[2022-04-29] MEDS: INSULIN -REGULAR HUMAN 50 UNIT/0.5 ML ML SQ SCH ×4 (07:30→20:47)
[2022-04-29] MEDS: GABAPENTIN 100 MG CAP PO SCH ×3 (08:20→20:47)
[2022-04-29] MEDS: LOSARTAN POTASSIUM 50 MG TABLET PO SCH (08:20)
[2022-04-29] MEDS: BUPROPION HCL XL 150 MG TAB PO SCH (08:20)
[2022-04-29] MEDS: ASPIRIN 81 MG CHEWABLE TABLET PO SCH (08:20)
[2022-04-29] MEDS: SERTRALINE HCL 100 MG TAB PO SCH (08:20)
[2022-04-29] MEDS: CLOPIDOGREL 75 MG TABLET PO SCH (08:20)
[2022-04-29] MEDS: ACETIC ACID 0.25% IRRIG IRR SCH (08:21)
[2022-04-29] MEDS: HUMALOG MIX 75/25 100 UNITS/ML SQ SCH ×2 (08:22→17:19)
[2022-04-29] MEDS: DUTASTERIDE 0.5 MG GEL CAP PO SCH (08:54)
[2022-04-29] MEDS ORDERED: HUMALOG MIX 75/25 100 UNITS/ML SQ SCH (09:00)
--- NOTE | 2022-04-29 13:04 | P.PN ---
Subjective Date of Service: 04/29/22 Chief Complaint: FOOT INFECTION Subjective: Improving HE FEELS LOT BETTER. NO PAIN FEELS LOT BETTER. SOME BLEEDING FROM FOOT HE PUT PRESSURE ON IT. Physical Examination - Vital Signs Temperature: 97.8 F Blood Pressure: 151/67 Pulse: 70 Respirations: 16 Pulse Ox (%): 98 - Physical Exam General: In no apparent distress, Oriented x3, Obese HEENT: Atraumatic, PERRLA, EOMI Neck: Supple, JVD not distended Respiratory: Clear to auscultation bilaterally, Normal air movement Cardiovascular: Regular rate/rhythm, Normal S1 S2 Gastrointestinal: Normal bowel sounds, No tenderness Musculoskeletal: No tenderness Integumentary: Diabetic ulcer (DISTAL FOREFOOT INFECTION PUS BETW TOES SMALLER AMOUNT NOW. ) Neurological: Normal speech, Normal tone, Normal affect Lymphatics: No axilla or inguinal lymphadenopathy - Studies Medications List Reviewed: Yes Assessment And Plan - Current Problems (Diagnosis) (1) Cellulitis of left foot Current Visit: Yes Status: Acute Plan: CULTURES ARE PENDING CONTINUE VANCO AND ZOSYN PICC LINE. VANCO FOR HOME. ZOSYN WILL STOP AT DC. STABLE FOR NOW. CONT VANCOMYCIN TOTAL FO R 14 DAYS. IV ABX FOR HOME. INS APPROVAL PENDING. I AM WAITING. (2) Diabetic peripheral angiopathy Current Visit: Yes Status: Chronic Plan: HISTORY OF PAD. CHECK L SIDE. WILL GET VASCUALR SURGEON IF NEED. DR. MOURA ON OUTPATIENT BASIS. (3) Coronary artery disease due to type 2 diabetes mellitus Current Visit: Yes Status: Acute (4) Diabetic peripheral neuropathy Current Visit: Yes Status: Chronic Plan: GABAPENTIN TRIAL MAY NEED TO RAISE DOSE. SMALL DOSE TO START WITH.
[2022-04-29] MEDS: VANCOMYCIN 1.75 GM in NA CHLORIDE 0.9% 500 ML IVPB SCH (15:14)
[2022-04-29] MEDS: ENOXAPARIN 40 MG/0.4 ML SQ SCH (17:19)
[2022-04-29] MEDS: TAMSULOSIN 0.4 MG SR CAP PO SCH (20:47)
[2022-04-29] MEDS: ATORVASTATIN 40 MG TAB PO SCH (20:47)
[2022-04-30] MEDS: PIPER TAZO 3.375 GM in NA CHLORIDE 0.9% 100 ML IV SCH ×3 (00:29→17:46)
[2022-04-30] MEDS: INSULIN -REGULAR HUMAN 50 UNIT/0.5 ML ML SQ SCH ×4 (07:30→20:54)
[2022-04-30] MEDS ORDERED: VANCOMYCIN 2.25 GM in NA CHLORIDE 0.9% 500 ML IVPB SCH (09:00)
[2022-04-30] MEDS: ACETIC ACID 0.25% IRRIG IRR SCH (09:00)
[2022-04-30] MEDS: DUTASTERIDE 0.5 MG GEL CAP PO SCH (09:06)
[2022-04-30] MEDS: CLOPIDOGREL 75 MG TABLET PO SCH (09:07)
[2022-04-30] MEDS: SERTRALINE HCL 100 MG TAB PO SCH (09:07)
[2022-04-30] MEDS: BUPROPION HCL XL 150 MG TAB PO SCH (09:07)
[2022-04-30] MEDS: GABAPENTIN 100 MG CAP PO SCH ×3 (09:07→20:54)
[2022-04-30] MEDS: ASPIRIN 81 MG CHEWABLE TABLET PO SCH (09:07)
[2022-04-30 09:15] VITALS: O2SAT 98
[2022-04-30] MEDS: LOSARTAN POTASSIUM 50 MG TABLET PO SCH (09:15)
[2022-04-30] MEDS: HUMALOG MIX 75/25 100 UNITS/ML SQ SCH ×2 (09:15→17:46)
[2022-04-30] MEDS: VANCOMYCIN 2.25 GM in NA CHLORIDE 0.9% 500 ML IVPB SCH (12:22)
[2022-04-30] MEDS: ENOXAPARIN 40 MG/0.4 ML SQ SCH (17:46)
[2022-04-30] MEDS: NA CHLORIDE 0.9% 1,000 ML IV SCH (20:49)
[2022-04-30] MEDS: TAMSULOSIN 0.4 MG SR CAP PO SCH (20:53)
[2022-04-30] MEDS: ATORVASTATIN 40 MG TAB PO SCH (20:54)
--- NOTE | 2022-04-30 20:55 | P.PN ---
Subjective Date of Service: 04/30/22 Chief Complaint: FOOT INFECTION Subjective: Improving HE FEELS LOT BETTER. NO PAIN FEELS LOT BETTER. SOME BLEEDING FROM FOOT HE PUT PRESSURE ON IT. ULCER AND WOUND ARE DRYING UP. I AM WAITING FOR HOME HEALTH CARE ARRANGEMENT NOW. HE IS STABLE TO GO HOME SINCE YESTERDAY Physical Examination - Vital Signs Temperature: 96.9 F Blood Pressure: 116/71 Pulse: 84 Respirations: 20 Pulse Ox (%): 97 - Physical Exam General: Oriented x3, Mild distress, Obese HEENT: Atraumatic, PERRLA, EOMI Neck: Supple, JVD not distended Respiratory: Clear to auscultation bilaterally, Normal air movement Cardiovascular: Regular rate/rhythm, Normal S1 S2 Gastrointestinal: Normal bowel sounds, No tenderness Musculoskeletal: No tenderness Integumentary: Erythema, Diabetic ulcer (BETWEEN TOES, DRYING UP. INFLAMMATION IS DOWN BY 80%) Neurological: Normal speech, Normal tone, Normal affect Lymphatics: No axilla or inguinal lymphadenopathy - Studies Medications List Reviewed: Yes Assessment And Plan - Current Problems (Diagnosis) (1) Cellulitis of left foot Current Visit: Yes Status: Acute Plan: CULTURES ARE PENDING CONTINUE VANCO AND ZOSYN PICC LINE. VANCO FOR HOME. ZOSYN WILL STOP AT DC. STABLE FOR NOW. CONT VANCOMYCIN TOTAL FO R 14 DAYS. IV ABX FOR HOME. INS APPROVAL PENDING. I AM WAITING. DC HOME TODAY. ORDERS WRITTEN. DELAYED FOR SOME REASON. (2) Diabetic peripheral angiopathy Current Visit: Yes Status: Chronic Plan: HISTORY OF PAD. CHECK L SIDE. WILL GET VASCUALR SURGEON IF NEED. DR. MOURA ON OUTPATIENT BASIS. (3) Coronary artery disease due to type 2 diabetes mellitus Current Visit: Yes Status: Acute (4) Diabetic peripheral neuropathy Current Visit: Yes Status: Chronic Plan: GABAPENTIN TRIAL MAY NEED TO RAISE DOSE. SMALL DOSE TO START WITH.
[2022-05-01] MEDS: PIPER TAZO 3.375 GM in NA CHLORIDE 0.9% 100 ML IV SCH ×2 (00:13→08:52)
[2022-05-01] MEDS: INSULIN -REGULAR HUMAN 50 UNIT/0.5 ML ML SQ SCH ×2 (07:30→11:30)
[2022-05-01] MEDS: HOME MED 1 EA UNK (Semaglutide [Ozempic] 1 MG/0.75 ML Pen.Injctr) SQ SCH (07:45)
[2022-05-01] MEDS: LOSARTAN POTASSIUM 50 MG TABLET PO SCH (08:52)
[2022-05-01] MEDS: CLOPIDOGREL 75 MG TABLET PO SCH (08:54)
[2022-05-01] MEDS: TRAMADOL HCL 50 MG TAB PO PRN (08:54)
[2022-05-01] MEDS: SERTRALINE HCL 100 MG TAB PO SCH (08:54)
[2022-05-01] MEDS: GABAPENTIN 100 MG CAP PO SCH ×2 (08:54→14:00)
[2022-05-01] MEDS: ASPIRIN 81 MG CHEWABLE TABLET PO SCH (08:55)
[2022-05-01] MEDS: DUTASTERIDE 0.5 MG GEL CAP PO SCH (08:56)
[2022-05-01] MEDS: BUPROPION HCL XL 150 MG TAB PO SCH (08:57)
[2022-05-01] MEDS: ACETIC ACID 0.25% IRRIG IRR SCH (08:57)
[2022-05-01] MEDS: HUMALOG MIX 75/25 100 UNITS/ML SQ SCH (08:59)
[2022-05-01] MEDS: VANCOMYCIN 2.25 GM in NA CHLORIDE 0.9% 500 ML IVPB SCH (12:52)
[2022-05-01 14:06] VITALS: BP 151/78; TEMP 96.9
--- NOTE | 2022-05-01 17:51 | P.DS ---
Admission Date: 04/22/22 Discharge Date: 05/01/22 Disposition: [place] HOME/HOME HEALTH CARE Discharge Condition: FAIR Reason for Admission: FOOT INFECTION - Problems (1) Cellulitis of left foot Current Visit: Yes Status: Acute (2) Diabetic peripheral angiopathy Current Visit: Yes Status: Chronic (3) Coronary artery disease due to type 2 diabetes mellitus Current Visit: Yes Status: Acute (4) Diabetic peripheral neuropathy Current Visit: Yes Status: Chronic Brief History of Present Illness: NICOLE IS A DIABETIC WITH CAD, PAD AND R FOREFOOT AMPUTATION COMES WITH L SIDE FOOT INFECTION OVERNIGHT. IT HAS TURNED RED AND HAS PAIN. NO FEVER. Hospital Course: NICOLE IS A DIABETIC WITH MOD PVD, COMES IN WITH REDNESS, PUS FROM THE FOREFOOT. HE TOOK LONG TIME TO IMPROVE WITH IV VANCOMYCIN. HE DID NOT GROW ANY CULTURE HE WAS ALREADY ON ANTIBIOTIC DURING TIME OF CULTURE. HE DID NOT IMPROVE ON ZOSYN ALONE SO I ADDED VANCOMYCIN AND IT WORKED. HE WILL CONTINUE ANTIBIOTIC WITH . HE IS NEW PATIENT FOR ME. HE WAS TAKING INSULIN BY HIS INTUITION. I RAISED HE DOSE AN ASKED HIM TO RESUME THAT DOSE. HE WILL COME TO OFFICE ON FRIDAY. Vital Signs/Physical Exam: Temp Pulse Resp BP Pulse Ox 96.9 F 66 20 151/78 H 97 05/01/22 12:00 05/01/22 12:00 05/01/22 12:00 05/01/22 12:00 05/01/22 12:00 Laboratory Data at Discharge: WBC 8.30 K/uL (4.3-10.9) 04/23/22 03:16 Hgb 12.4 g/dL (13.6-17.9) L 04/23/22 03:16 Hct 35.9 % (39.6-49.0) L 04/23/22 03:16 Plt Count 199 K/uL (152-406) 04/23/22 03:16 Sodium 139 mmol/L (136-145) 04/23/22 03:16 Potassium 3.7 mmol/L (3.5-5.1) 04/23/22 03:16 BUN 11 mg/dL (7-18) 04/23/22 03:16 Creatinine 0.86 mg/dL (0.55-1.3) 04/23/22 03:16 Glucose 136 mg/dL (74-106) H 04/23/22 03:16 Total Bilirubin 0.5 mg/dL (0.2-1.0) 04/23/22 03:16 AST 17 U/L (15-37) 04/23/22 03:16 ALT 43 U/L (12-78) 04/23/22 03:16 Alkaline Phosphatase 99 U/L (45-117) 04/23/22 03:16 LDL Cholesterol Direct 43 mg/dL (100-129) L 04/27/22 11:35 Home Medications: Aspirin Chewable [Aspirin Chewable*] 81 mg PO DAILY 04/23/22 Atorvastatin Calcium [Lipitor] 40 mg PO BEDTIME 04/23/22 Bupropion *Xl* [Wellbutrin XL*] 150 mg PO DAILY 04/23/22 Clopidogrel Bisulfate [Plavix*] 75 mg PO DAILY 04/23/22 Dutasteride [Avodart*] 0.5 mg PO DAILY 04/23/22 Insulin Aspart Protam & Aspart [Novolog Mix 70-30 Vial] 30 unit SQ DAILY 04/23/22 Insuln Asp Prt/Insulin Aspart [Novolog Mix 70-30 Vial] 20 unit SQ DAILY 6PM 04/23/22 Losartan Potassium 100 mg PO DAILY 04/23/22 Semaglutide [Ozempic] 0.5 mg SQ Q7D 04/23/22 Sertraline HCl 100 mg PO DAILY 04/23/22 Tamsulosin [Flomax*] 0.4 mg PO BEDTIME 04/23/22 Acetic Acid 0.25% [Acetic Acid 0.25%*] 1,000 ml IRR DAILY btl 04/30/22 Insulis Lispro MIX 75/25 [Humalog Mix 75/25*] 25 units SQ DAILY 6PM vial 04/30/22 Insulis Lispro MIX 75/25 [Humalog Mix 75/25*] 40 units SQ DAILY vial 04/30/22 Physician Discharge Instructions: Be sure to clean left foot with acetic acid daily, especially between toes. Dry thouroughly. Vancomycin 2.25gm every 24 hours x 7 days. Flush PICC line before and agter use with 10ml Normal saline. Remove PICC line when last dose of antibiotics therapy complete. Vanc trough before every 3rd dose of vancomycin. Followup: Ruddy Santos MD [Primary Care Provider] -
[2022-05-01 21:57] LABS: PSA FREE 0.11 ng/mL
== END 2022-05-01 16:45 | disposition home health service (06) | DRG 603 ==
LOC: ER 00:07 → ERHOLD 05:31 → 2ND 17:17 → 4TH 04-29 13:33
PROVIDERS: ADMIT Internal Medicine; ATTEND Internal Medicine
PROC: 02HV33Z Insertion of Infusion Device into Superior Vena Cava, Percutaneous Approach (ICD-10-PCS; principal; 2022-04-27)
DX: L03.116 Cellulitis of left lower limb (principal); E11.51 Type 2 diabetes mellitus with diabetic peripheral angiopathy without gangrene; E11.42 Type 2 diabetes mellitus with diabetic polyneuropathy; I25.10 Atherosclerotic heart disease of native coronary artery without angina pectoris; F17.210 Nicotine dependence, cigarettes, uncomplicated; Z89.431 Acquired absence of right foot; Z95.5 Presence of coronary angioplasty implant and graft; Z79.4 Long term (current) use of insulin; Z79.82 Long term (current) use of aspirin; Z79.899 Other long term (current) drug therapy; Z20.822 Contact with and (suspected) exposure to COVID-19
CPT/HCPCS: 36415; 36569; 71045; 80048; 80053; 80076; 80202; 82947; 83036; 83605; 84153; 84154; 84484; 85025; 87040; 87070; 87075; 87102; 87205; 87811; 93005; 93925; 94640; 94760; 96361; 96374; 96375; 99285; J1650; J1815; J2543; J3370; J7030; J7040; J7050